=== PATIENT | female | born 1965 | race Caucasian/White ===

== ENCOUNTER 2020-09-08 10:40 | Emergency (ER) | payer OTHER, BC ==
--- NOTE | 2020-09-08 11:17 | ERPHSYRPT ---
- History of Present Illness Time Seen by Provider: 09/08/20 11:10 Historian: patient Exam Limitations: no limitations Patient Subjective Stated Complaint: pt states "I got tripped up by my dog and fell down the back steps and hit my belly. I had a gastric sleeve done on August 14. I have a new pain just above my incision site that wasn't there." Triage Nursing Assessment: PT presented alert and oriented X 3, skin pwd Pt ambulates with an uprigth steady gait. PT able to speak in clear full setences pt has not other complaints. Physician History: This is a 54-year-old diabetic white female who underwent a gastric sleeve surgical procedure approximately August 142019. Patient was doing well from the surgical standpoint. Today, she was tangled up while walking her dog and fell onto her abdominal wall. She has had significant, different type of pain since her fall and was concerned about the midline wound and intra- abdominal contents. Patient contacted her surgeon as well as her primary care physician. Both of which told her to come to the emergency department for evaluation. Patient denies nausea vomiting or diarrhea. She is not in significant amount of distress but is concerned about whether or not the fall caused some problems since there is a different type of pain than before her fall. Patient had some lab work performed in the lab this morning as an outpatient. Timing/Duration: today Quality: sharpness, stabbing Abdominal Pain Onset Location: other (Upper midline incision) Pain Radiation: no radiation Severity of Pain-Max: moderate Modifying Factors: Improves With: nothing. Worsens With: coughing, vomiting Associated Symptoms: denies symptoms Previous symptoms: different symptoms, recently seen, recent hospitalization, recently treated Allergies/Adverse Reactions: narcotics Adverse Reaction (Severe, Uncoded 09/08/20 10:56) hallucination, hives, gi Home Medications: Ezetimibe 10 mg [Zetia 10 MG] 10 mg PO DAILY 09/08/20 [History] Metformin HCl [Metformin ER Gastric] 500 mg PO BID 09/08/20 [History] Omeprazole 40 mg PO DAILY 09/08/20 [History] Hx Tetanus, Diphtheria Vaccination/Date Given: Yes Hx Influenza Vaccination/Date Given: No Hx Pneumococcal Vaccination/Date Given: No Immunizations Up to Date: Yes Travel Risk - International Travel Have you traveled outside of the country in past 3 weeks: No - Coronavirus Screening Are you exhibiting any of the following symptoms?: No Close contact with a COVID-19 positive Pt in past 14-21 Days: No - Review of Systems Constitutional: No Symptoms Eyes: No Symptoms Ears, Nose, & Throat: No Symptoms Respiratory: No Symptoms Cardiac: No Symptoms Abdominal/Gastrointestinal: Abdominal Pain, No Nausea, No Vomiting, No Diarrhea Genitourinary Symptoms: No Symptoms Musculoskeletal: No Symptoms Skin: No Symptoms Neurological: No Symptoms Psychological: No Symptoms Endocrine: No Symptoms Hematologic/Lymphatic: No Symptoms Immunological/Allergic: No Symptoms All Other Systems: Reviewed and Negative - Past Medical History Pertinent Past Medical History: Yes Neurological History: No Pertinent History ENT History: No Pertinent History Cardiac History: Congenital Heart Disease, High Cholesterol, Hypertension Respiratory History: No Pertinent History Endocrine Medical History: Diabetes Type II, Liver Disease Musculoskeletal History: No Pertinent History GI Medical History: Other History: No Pertinent History Psycho-Social History: No Pertinent History Female Reproductive Disorders: No Pertinent History - Past Surgical History Past Surgical History: Yes Other Surgical History: hysterecomy. gastric sleeve. veronique. tonsils and adnoids. bilat hands - Social History Smoking Status: Never smoker Exposure to second hand smoke: No Drug Use: none Patient Lives Alone: No - Female History Hx Now: No - Nursing Vital Signs Nursing Vital Signs: Initial Vital Signs Temperature 98.1 F 09/08/20 10:45 Pulse Rate 84 09/08/20 10:45 Respiratory Rate 20 09/08/20 10:45 Blood Pressure 123/69 09/08/20 10:45 O2 Sat by Pulse Oximetry 96 09/08/20 10:45 Pain Scale Pain Intensity 2 - Physical Exam General Appearance: no apparent distress, alert, anxiety Eye Exam: PERRL/EOMI, eyes nml inspection Ears, Nose, Throat Exam: normal ENT inspection, moist mucous membranes Neck Exam: normal inspection, non-tender, supple, full range of motion Respiratory Exam: normal breath sounds, lungs clear, airway intact, No chest tenderness, No respiratory distress Cardiovascular Exam: regular rate/rhythm, normal peripheral pulses Gastrointestinal/Abdomen Exam: soft, normal bowel sounds, tenderness (Upper portion of healing midline incision. No evidence of hernia or disruption of incision site), No guarding, No ecchymosis, No pulsatile mass, No rebound Pelvic Exam: not done Rectal Exam: not done Back Exam: normal inspection, normal range of motion, No CVA tenderness, No vertebral tenderness Extremity Exam: normal inspection, normal range of motion, pelvis stable Neurologic Exam: alert, oriented x 3, cooperative, tool engineer II-XII nml as tested, normal mood/affect, nml cerebellar function, nml station & gait, sensation nml Skin Exam: normal color, warm, dry Lymphatic Exam: No adenopathy SpO2 Interpretation: normal SpO2: 96 O2 Delivery: Room Air - Course Nursing assessment & vital signs reviewed: No Ordered Tests: Active Orders 24 hr Category Date Time Status IV Insertion STAT Care 09/08/20 11:17 Active ABDOMEN AND PELVIS W/0 CONTRAS [CT] Stat Exams 09/08/20 11:44 Completed AMYLASE Stat Lab 09/08/20 11:17 Completed LIPASE Stat Lab 09/08/20 11:17 Completed Lactic Acid Stat Lab 09/08/20 11:17 Ordered Lab/Rad Data: Laboratory Results 09/08/20 Range/Units 11:17 Amylase 84 (30-110) U/L Lipase 134 (23-300) U/L - Progress Progress: unchanged, pain not gone completely, re-examined Progress Note: 09/08/20 12:41 CAT scan of the abdomen and pelvis without contrast reveals postsurgical changes. However, there was a splenic density. Radiology stated they could not completely rule out a splenic hematoma. They recommended intravenous contrast and repeat CAT scan of the abdomen pelvis. Medical decision making: I reviewed the results of the abdomen and pelvis CAT scan without contrast with the patient. 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 She is refusing the CAT scan of the abdomen and pelvis with intravenous contrast. She does not have pain in the left upper quadrant. She is aware that I cannot completely rule out a splenic hematoma secondary to her fall. Patient states she understands and she still refuses the CAT scan of the abdomen and pelvis with intravenous contrast. She signed a refusal of treatment/test form. Counseled pt/family regarding: lab results, diagnosis, need for follow-up, rad results - Departure Departure Disposition: Home Clinical Impression: Fall, Abdominal wall pain Condition: Stable Critical Care Time: No Referrals: OSBALDO GOMES [Primary Care Provider] - Additional Instructions: Drink plenty of fluids. Postoperative activity as instructed by your surgeon. Follow-up with your surgeon and primary care physician for further management.
[2020-09-08 11:31] LABS: AMYLASE 84 U/L (30-110); LIPASE 134 U/L (23-300)
--- NOTE | 2020-09-08 12:11 | XRAY ---
Indication: Left upper quadrant pain following fall. Status post bariatric surgery August 14, 2020. Multiple contiguous axial images obtained through the abdomen and pelvis without contrast as ordered. Comparison: None Lung bases demonstrates small right costophrenic angle calcified granuloma. No infiltrate or effusion. Heart is not enlarged. There has been previous gastric bypass surgery. Noncontrasted stomach and bowel loops appear nonobstructed. Reported appendectomy, hysterectomy, and cholecystectomy. Medial spleen demonstrates 3.8 x 2.6 cm focus of subcapsular hypodensity. Lack of IV contrast precludes further characterization. No free fluid/air. Remaining liver, pancreas, adrenal glands, kidneys, ureters, and bladder are unremarkable for noncontrast exam. Mild scattered aortoiliac calcifications without AAA. Osseous structures intact with minimal degenerative changes throughout the spine. Anterior abdomen demonstrates left upper quadrant and supraumbilical subcutaneous induration possibly postoperative given recent surgery. No abdominal wall suspicious fluid collection or air. Impression: 1. Splenic subcapsular hypodensity as detailed. Subscapular hematoma not completely excluded based on clinical presentation and history. IV contrast exam may yield further information. 2. Anterior abdominal subcutaneous induration as detailed possibly related to recent surgery. 3. Remaining CT abdomen/pelvis without contrast exam is negative.
[2020-09-08 12:56] VITALS: BP 121/85; PULSE 77; O2SAT 94
== END 2020-09-08 13:00 | disposition home or self-care (01) ==
LOC: ED 10:40
DX: R10.9 Unspecified abdominal pain (principal); W01.0XXA Fall on same level from slipping, tripping and stumbling without subsequent striking against object, initial encounter; Z79.891 Long term (current) use of opiate analgesic; E78.00 Pure hypercholesterolemia, unspecified; I10 Essential (primary) hypertension; E11.9 Type 2 diabetes mellitus without complications
CPT/HCPCS: 36415; 74176; 80053; 80061; 82150; 83036; 83690; 83721; 84443; 85025; 99284